=== PATIENT | male | born 1965 | race Caucasian/White ===

== ENCOUNTER 2025-04-17 17:32 | Inpatient (IN) | payer MEDICARE, OTHER ==
[~2025-04-17] VITALS: Ht 177.8 cm; Wt 94.8 kg
[2025-04-17] MEDS ORDERED: DIVA125C2 PO (18:32)
[2025-04-17] MEDS ORDERED: MULT-594 PO (18:32)
[2025-04-17] MEDS ORDERED: RISP1TAB97 PO (18:32)
[2025-04-17] MEDS ORDERED: RISP2TAB85 PO (18:32)
[2025-04-17] MEDS ORDERED: LACT10SO29 PO (18:32)
[2025-04-17] MEDS ORDERED: OMEG100019 PO (18:32)
[2025-04-17] MEDS ORDERED: MELA3TAB41 PO (18:32)
[2025-04-17] MEDS ORDERED: ATOR20TA PO (18:32)
[2025-04-17] MEDS ORDERED: BISA10SU11 RC (18:32)
[2025-04-17] MEDS ORDERED: MAGN400O6 PO (18:32)
[2025-04-17] MEDS ORDERED: ACET325T53 PO (18:32)
[2025-04-17 19:17] LABS: PLATELET COUNT (AUTO) 207 K/uL (150-450); RED BLOOD CELL COUNT(AUTO) 4.91 MIL/uL (4.5-6.0); RED CELL DISTRIBUTION WIDTH 13.6 % (11.5-15.0); WHITE BLOOD COUNT (AUTO) 11.0 K/uL (4.3-11.0)
[2025-04-17 19:24] LABS: APPEARANCE,URINE CLEAR (CLEAR); BLOOD, URINE Trace-intact Ery/uL (NEGATIVE); LEUKOCYTE ESTERASE ,URINE Negative (NEGATIVE); NITRITE, URINE NEGATIVE (NEGATIVE); UGLUCOSE Negative (NEGATIVE)
[2025-04-17 19:27] LABS: CALCIUM, SERUM 9.1 mg/dL (8.5-10.1); CREATININE 0.8 mg/dL (0.6-1.3); SODIUM SERUM 138 mmol/L (136-145); UREA NITROGEN, BLOOD 19 mg/dL (7-18)
[2025-04-17 19:30] LABS: ASPARTATE AMINOTRANSFERASE 12 U/L (15-37); TOTAL PROTEIN, SERUM 6.9 g/dL (6.4-8.2)
[2025-04-17 19:32] LABS: AMPHETAMINE, URINE NEGATIVE (NEGATIVE); BARBITURATE, URINE NEGATIVE (NEGATIVE); BENZODIAZEPINE, URINE NEGATIVE (NEGATIVE); CANNABINOID, URINE NEGATIVE (NEGATIVE); COCCAINE, URINE NEGATIVE (NEGATIVE); OPIATE, URINE NEGATIVE (NEGATIVE)
[2025-04-17 19:33] LABS: ADD URINE CULTURE NO; SQUAMOUS EPITHELIAL CELL,UR None Seen /HPF (None Seen)
[2025-04-17] MEDS ORDERED: ACETAMINOPHEN 325 MG TABLET ONE (21:36)
[2025-04-17] MEDS: ACETAMINOPHEN 325 MG TABLET PO PRN (21:41)
[2025-04-17] MEDS: ATORVASTATIN 10 MG TABLET PO SCH (23:00)
[2025-04-17] MEDS ORDERED: ATORVASTATIN 10 MG TABLET ONE (23:03)
[2025-04-18 01:05] VITALS: BP 118/95; TEMP 97.9; O2SAT 99
[2025-04-18] MEDS ORDERED: LORAZEPAM 0.5 MG TABLET PO PRN (01:30)
[2025-04-18] MEDS ORDERED: MAG HYDROX/AL HYDROX/SIMETH 30 ML UDC PO PRN (01:30)
[2025-04-18] MEDS ORDERED: TEMAZEPAM 7.5 MG CAPSULE PO PRN (01:30)
[2025-04-18] MEDS ORDERED: MAGNESIUM HYDROXIDE 30 ML UDC PO PRN (01:30)
[2025-04-18] MEDS ORDERED: ACETAMINOPHEN 325 MG TABLET PO PRN (01:30)
[2025-04-18] MEDS: BLOOD SUGAR DIAGNOSTIC 1 EACH STRIP IN ONE (01:31)
[2025-04-18 08:00] VITALS: BP 113/68; TEMP 97.9; O2SAT 100
[2025-04-18] MEDS: LACTULOSE 10 G/15 ML UDC (PYXIS) PO SCH (08:30)
[2025-04-18] MEDS: MULTIVITAMINS,THERAGRAN 1 UDTAB TABLET PO SCH (08:30)
[2025-04-18] MEDS: LORAZEPAM 0.5 MG TABLET PO PRN (13:34)
[2025-04-18 16:00] VITALS: BP 135/74; TEMP 97.3; O2SAT 97
[2025-04-18 20:02] VITALS: BP 121/62; TEMP 97.7; O2SAT 99
[2025-04-19 08:00] VITALS: BP 100/50; TEMP 98.1; O2SAT 98
[2025-04-19 08:32] LABS: SERUM AMMONIA 24 umol/L (11-32)
[2025-04-19 08:33] LABS: VALPROIC ACID 6 ug/mL (50-100)
[2025-04-19 08:35] LABS: ASPARTATE AMINOTRANSFERASE 14.0 U/L (15-37); CALCIUM, SERUM 8.9 mg/dL (8.5-10.1); CREATININE 0.9 mg/dL (0.6-1.3); SODIUM SERUM 143.0 mmol/L (136-145); TOTAL PROTEIN, SERUM 6.8 g/dL (6.4-8.2); UREA NITROGEN, BLOOD 17.0 mg/dL (7-18)
[2025-04-19 08:36] LABS: LDL 63 mg/dL (0-99)
[2025-04-19 10:00] VITALS: BP 100/50; TEMP 98.1
[2025-04-19] MEDS ORDERED: OLANZAPINE 10 MG VIAL IM ONE (11:30)
[2025-04-19] MEDS: GABAPENTIN 100 MG CAPSULE PO SCH (14:10)
[2025-04-19 16:00] VITALS: BP 120/69; TEMP 98.1; O2SAT 98
[2025-04-19 16:17] VITALS: BP 120/69; TEMP 98.1; O2SAT 98
[2025-04-19] MEDS: TEMAZEPAM 7.5 MG CAPSULE PO PRN (17:38)
[2025-04-19 20:00] VITALS: BP 100/50; TEMP 98.2; O2SAT 95
[2025-04-19 20:07] VITALS: BP 100/50; TEMP 98.2; O2SAT 95
[2025-04-20 08:00] VITALS: BP 121/76; TEMP 97.8; O2SAT 96
[2025-04-20 16:00] VITALS: BP 109/56; TEMP 98.6; O2SAT 98
[2025-04-20 20:00] VITALS: BP 110/65; TEMP 98; O2SAT 98
[2025-04-21 08:00] VITALS: BP 121/65; TEMP 97.1; O2SAT 95
[2025-04-21 16:00] VITALS: BP 130/78; TEMP 97.8; O2SAT 97
[2025-04-21 21:40] VITALS: BP 123/69; TEMP 97.9; O2SAT 98
[2025-04-22 08:00] VITALS: BP 134/74; TEMP 97.8; O2SAT 95
[2025-04-22] MEDS: GABAPENTIN 300 MG CAPSULE PO SCH (08:28)
[2025-04-22 16:10] VITALS: BP 123/73; TEMP 98.1; O2SAT 96
[2025-04-22 21:57] VITALS: BP 109/59; TEMP 98; O2SAT 96
[2025-04-23 08:00] VITALS: BP 122/71; TEMP 97.5; O2SAT 95
[2025-04-23 16:00] VITALS: BP 118/67; TEMP 97.5; O2SAT 98
[2025-04-23 20:11] VITALS: BP 119/58; TEMP 97.9; O2SAT 96
[2025-04-24 08:00] VITALS: BP 115/65; TEMP 97.9; O2SAT 97
[2025-04-24 16:00] VITALS: BP 106/58; TEMP 98.2; O2SAT 96
[2025-04-24 19:37] VITALS: BP 118/61; TEMP 98.3; O2SAT 98
[2025-04-25 08:00] VITALS: BP 116/69; TEMP 97.8; O2SAT 96
[2025-04-25 16:05] VITALS: BP 127/56; TEMP 98.7; O2SAT 97
[2025-04-25 20:11] VITALS: BP 108/60; TEMP 98.2; O2SAT 96
[2025-04-26 08:00] VITALS: BP 130/97; TEMP 98.6; O2SAT 98
[2025-04-26 16:00] VITALS: BP 110/73; TEMP 97.7; O2SAT 99
[2025-04-26 20:07] VITALS: BP 116/72; TEMP 98.1; O2SAT 100
[2025-04-27 08:00] VITALS: BP 126/55; TEMP 97.8; O2SAT 96
[2025-04-27 16:00] VITALS: BP 108/68; TEMP 98; O2SAT 96
[2025-04-27 20:15] VITALS: BP 125/60; TEMP 98; O2SAT 98
[2025-04-28 08:00] VITALS: BP 122/64; TEMP 97.7; O2SAT 98
[2025-04-28 16:00] VITALS: BP 110/70; TEMP 97.7; O2SAT 98
[2025-04-28 20:16] VITALS: BP 109/74; TEMP 97.7; O2SAT 98
[2025-04-29 08:00] VITALS: BP 140/76; TEMP 98.7; O2SAT 98
[2025-04-29 16:00] VITALS: BP 118/70; TEMP 98.7; O2SAT 99
[2025-04-29 20:31] VITALS: BP 115/77; TEMP 98.1; O2SAT 96
[2025-04-30 08:00] VITALS: BP 129/77; TEMP 97.7; O2SAT 98
[2025-04-30 16:00] VITALS: BP 125/73; TEMP 98; O2SAT 96
[2025-04-30 19:55] VITALS: BP 109/56; TEMP 98.2; O2SAT 97
[2025-05-01] MEDS: ACETAMINOPHEN 325 MG TABLET PO PRN (04:11)
[2025-05-01 08:00] VITALS: BP 134/89; TEMP 97.7; O2SAT 98
[2025-05-01 16:00] VITALS: BP 122/73; TEMP 97.7; O2SAT 93
== END 2025-05-01 17:55 | DRG 885 ==
LOC: ER 17:35 → GPS 21:21
PROVIDERS: ADMIT Nurse Practitioner Psychiatric/Mental Health; ATTEND Nurse Practitioner Family
DX: F25.0 Schizoaffective disorder, bipolar type (principal); N18.9 Chronic kidney disease, unspecified; G20.C Parkinsonism, unspecified; F29 Unspecified psychosis not due to a substance or known physiological condition; J44.9 Chronic obstructive pulmonary disease, unspecified; E66.9 Obesity, unspecified; G25.9 Extrapyramidal and movement disorder, unspecified; F17.210 Nicotine dependence, cigarettes, uncomplicated; M19.90 Unspecified osteoarthritis, unspecified site; R79.89 Other specified abnormal findings of blood chemistry; E78.5 Hyperlipidemia, unspecified; Z68.30 Body mass index [BMI] 30.0-30.9, adult; Z71.6 Tobacco abuse counseling; R13.10 Dysphagia, unspecified; M62.40 Contracture of muscle, unspecified site; F39 Unspecified mood [affective] disorder; G62.9 Polyneuropathy, unspecified; Z79.899 Other long term (current) drug therapy
CPT/HCPCS: 36415; 80048-TC; 80053-TC; 80061-TC; 80076-TC; 80164-TC; 81001; 82140-TC; 85025-TC; 97110-TC; 97116-TC; 97530-TC; 98960